=== PATIENT | male | born 1935 ===

== ENCOUNTER 2021-05-02 10:47 | Inpatient (IN) | payer OTHER ==
[2021-05-02] MEDS ORDERED: SODIUM CHLORIDE 1,987 ML IV ONE (12:12)
[2021-05-02] MEDS ORDERED: ACETAMINOPHEN 1000 MG/100 ML BAG IVPB ONE (12:14)
[2021-05-02] MEDS ORDERED: ACETAMINOPHEN INJECTION 100 ML IVPB ONE (12:23)
[2021-05-02] MEDS ORDERED: PIPERACILLIN/TAZOB 3.375 GM 3.375 GM in DEXTROSE 5%-WATER - 50 ML IVPB ONE (12:42)
[2021-05-02] MEDS ORDERED: VANCOMYCIN 1 GM in D5W (PRE-DOCKED) 1,000 MG/250 ML IVPB ONE (12:42)
[2021-05-02] MEDS ORDERED: PIPERACILLIN/TAZOB 3.375 GM 3.375 GM/50 ML BAG IVPB ONE (13:03)
[2021-05-02] MEDS ORDERED: VANCOMYCIN 1 GRAM (PRE-DOCKED) 1,000 MG/250 ML BAG IVPB ONE (13:03)
[2021-05-02 13:22] LABS: HEMATOCRIT 46.8 % (35.4-49); HEMOGLOBIN 14.6 GM/dL (11.7-16.9); MCH 27.8 pg (25.7-33.7); MCHC 31.1 g/dl (32.0-35.9); MEAN CELL VOLUME 89.2 fl (80-96); MEAN PLT VOLUME 9.1 fl (7.5-11.1); PLATELET COUNT 352 10^3/uL (134-434); RBC 5.25 M/mm3 (4.00-5.60); RDW 14.7 % (11.9-15.9); VENOUS BASE EXCESS 0.8 mmol/L (-2-2); VENOUS O2 SATURATION 47.8 % (70-80); VENOUS PCO2 34.6 mmHg (38-52); VENOUS PH 7.46 (7.310-7.410); WHITE BLOOD COUNT 20.3 K/mm3 (4.0-10.0)
[2021-05-02 13:30] LABS: INR 1.3 (0.83-1.09); PROTHROMBIN TIME (PATIENT) 14.6 SEC (9.7-13.0)
[2021-05-02 13:32] LABS: ACTIVATED PTT 31.1 SECONDS (25.2-36.5)
[2021-05-02 13:42] LABS: CALCIUM 8.4 mg/dL (8.5-10.1)
[2021-05-02 13:44] LABS: ALBUMIN 1.8 g/dl (3.4-5.0); BLOOD UREA NITROGEN 42.1 mg/dL (7-18)
[2021-05-02 13:46] LABS: CREATININE 1.4 mg/dL (0.55-1.3)
[2021-05-02 13:48] LABS: BILIRUBIN,TOTAL 0.5 mg/dL (0.2-1); TOT PROT 5.8 g/dl (6.4-8.2)
[2021-05-02 13:56] LABS: LACTIC ACID 2.8 mmol/L (0.4-2.0)
[2021-05-02 14:09] LABS: ERYTHROCYTE SEDIMENTATION RATE 42 mm/hr (0-20)
[2021-05-02 14:11] LABS: ANISOCYTOSIS 0; MACROCYTOSIS 0; PLATELET ESTIMATE NORMAL
[2021-05-02 14:53] LABS: EPI CELLS 6 /uL (0-25.1); HYALINE CASTS 18 /uL (0-3.1); URINE APPEARANCE CLOUDY; URINE BACTERIA 123 /uL (0-1359); URINE BILIRUBIN NEGATIVE (NEGATIVE); URINE COLOR YELLOW; URINE GLUCOSE (UA) NEGATIVE (NEGATIVE); URINE KETONE NEGATIVE (NEGATIVE); URINE LEUK ESTERASE 3+ (NEGATIVE); URINE NITRITE NEGATIVE (NEGATIVE); URINE PROTEIN TRACE (NEGATIVE); URINE RBC 584 /uL (0-23.9); URINE UROBILINOGEN 0.2 mg/dL (0.2-1.0); URINE WBC 860 /uL (0-25.8)
[2021-05-02 23:31] LABS: MAGNESIUM 2.2 mg/dL (1.8-2.4)
[2021-05-02] MEDS ORDERED: ACETAMINOPHEN 1000 MG/100 ML BAG IVPB PRN (23:46)
[2021-05-03 00:15] VITALS: BMI 19.5
[2021-05-03] MEDS ORDERED: PIPERACILLIN/TAZOBACTAM 3.375 GM VIAL IVPB ONE ×2 (02:24→09:16)
[2021-05-03] MEDS ORDERED: DEXTROSE 5%-WATER - 50 ML IVPB ONE ×2 (02:25→09:16)
[2021-05-03] MEDS: PIPERACILLIN/TAZOB 3.375 GM 3.375 GM in DEXTROSE 5%-WATER - 50 ML IVPB SCH ×4 (03:01→11:03)
[2021-05-03] MEDS ORDERED: DEXAMETHASONE SOD PHOSPHATE 4 MG/1 ML VIAL IVPUSH SCH (10:00)
[2021-05-03] MEDS ORDERED: MEROPENEM 1 GM VIAL (RESTRICTED TO ID) IVPB ONE ×2 (11:17→21:22)
[2021-05-03] MEDS ORDERED: DEXTROSE 5%-WATER 100 ML IVPB ONE ×2 (11:18→21:22)
[2021-05-03 11:20] LABS: HEMATOCRIT 47.6 % (35.4-49); HEMOGLOBIN 15.2 GM/dL (11.7-16.9); MCH 28.4 pg (25.7-33.7); MCHC 31.9 g/dl (32.0-35.9); MEAN CELL VOLUME 88.9 fl (80-96); MEAN PLT VOLUME 9.1 fl (7.5-11.1); PLATELET COUNT 269 10^3/uL (134-434); RBC 5.35 M/mm3 (4.00-5.60); RDW 14.8 % (11.9-15.9); WHITE BLOOD COUNT 16.8 K/mm3 (4.0-10.0)
[2021-05-03] MEDS: MEROPENEM 1 GM in DEXTROSE 5%-WATER 100 ML IVPB SCH ×2 (11:22→21:34)
[2021-05-03 11:33] LABS: ALBUMIN 1.9 g/dl (3.4-5.0); MAGNESIUM 2.2 mg/dL (1.8-2.4)
[2021-05-03 11:36] LABS: CREATININE 1.2 mg/dL (0.55-1.3)
[2021-05-03 11:38] LABS: BILIRUBIN,TOTAL 0.7 mg/dL (0.2-1); TOT PROT 5.6 g/dl (6.4-8.2)
[2021-05-03 12:09] LABS: ANISOCYTOSIS 0; HELMET CELLS 0; HOWELL-JOLLY BODIES 0; MACROCYTOSIS 0; OVALOCYTE 0; PLATELET ESTIMATE NORMAL; ROULEAU 0; SICKELED CELLS 0; TARGET CELLS 0; TEAR DROP CELLS 0; TOXIC GRANULATION 0
[2021-05-03] MEDS ORDERED: REMDESIVIR 200 MG in SODIUM CHLORIDE 250 ML IVPB ONE (13:00)
[2021-05-03] MEDS ORDERED: VANCOMYCIN 1,000 MG in DEXTROSE 5%-WATER - 250 ML IVPB SCH (14:00)
[2021-05-03] MEDS ORDERED: VANCOMYCIN 1 GRAM (PRE-DOCKED) 1,000 MG/250 ML BAG IVPB SCH (14:00)
[2021-05-03] MEDS ORDERED: SODIUM CHLORIDE 1,000 ML IV SCH (18:45)
[2021-05-03] MEDS ORDERED: DEXTROSE 5%-0.45% SALINE 1,000 ML IV SCH (18:45)
[2021-05-03] MEDS: LYTES/YERBA SANTA 60 ML SPRAY MM SCH (21:36)
[2021-05-04] MEDS: LYTES/YERBA SANTA 60 ML SPRAY MM SCH ×3 (07:11→22:20)
[2021-05-04 07:55] LABS: HEMATOCRIT 45.5 % (35.4-49); HEMOGLOBIN 14.5 GM/dL (11.7-16.9); MCH 28.2 pg (25.7-33.7); MEAN CELL VOLUME 88.3 fl (80-96); MEAN PLT VOLUME 8.9 fl (7.5-11.1); PLATELET COUNT 264 10^3/uL (134-434); RBC 5.15 M/mm3 (4.00-5.60); RDW 14.8 % (11.9-15.9); WHITE BLOOD COUNT 18.3 K/mm3 (4.0-10.0)
[2021-05-04 08:21] LABS: ALBUMIN 1.9 g/dl (3.4-5.0); BLOOD UREA NITROGEN 35.1 mg/dL (7-18); CALCIUM 8.3 mg/dL (8.5-10.1)
[2021-05-04 08:22] LABS: MAGNESIUM 2.3 mg/dL (1.8-2.4)
[2021-05-04 08:24] LABS: BILIRUBIN,TOTAL 0.3 mg/dL (0.2-1); TOT PROT 5.3 g/dl (6.4-8.2)
[2021-05-04 08:26] LABS: CREATININE 1.1 mg/dL (0.55-1.3)
[2021-05-04] MEDS ORDERED: DEXTROSE 5%-WATER - 1,000 ML IV SCH ×2 (08:30→12:00)
[2021-05-04 09:04] LABS: ANISOCYTOSIS 0; HELMET CELLS 0; HOWELL-JOLLY BODIES 0; MACROCYTOSIS 0; OVALOCYTE 0; PLATELET ESTIMATE NORMAL; ROULEAU 0; SICKELED CELLS 0; TARGET CELLS 0; TEAR DROP CELLS 0; TOXIC GRANULATION 0
[2021-05-04] MEDS ORDERED: MEROPENEM 1 GM VIAL (RESTRICTED TO ID) IVPB ONE ×3 (09:33→21:31)
[2021-05-04] MEDS ORDERED: DEXTROSE 5%-WATER 100 ML IVPB ONE ×3 (09:34→21:31)
[2021-05-04] MEDS ORDERED: MEROPENEM 1 GM in DEXTROSE 5%-WATER 100 ML IVPB SCH (10:00)
[2021-05-04] MEDS: DEXAMETHASONE SOD PHOSPHATE 4 MG/1 ML VIAL IVPUSH SCH (10:21)
[2021-05-04] MEDS: MEROPENEM 1 GM in DEXTROSE 5%-WATER 100 ML IVPB SCH ×3 (10:22→21:39)
[2021-05-04] MEDS ORDERED: PT OWN MED DRAWER 7, Y5N ONE ×2 (11:02→13:33)
[2021-05-04] MEDS ORDERED: TOCILIZUMAB (ACTEMRA) 200 MG/10 ML VIAL IVPB ONE (12:56)
[2021-05-04] MEDS ORDERED: REMDESIVIR 100 MG in SODIUM CHLORIDE 250 ML IVPB SCH (13:00)
[2021-05-04] MEDS: REMDESIVIR 100 MG in SODIUM CHLORIDE 250 ML IVPB SCH (13:46)
[2021-05-04] MEDS ORDERED: TOCILIZUMAB 400 MG, TOCILIZUMAB 100 MG in SODIUM CHLORIDE 75 ML IVPB ONE (14:00)
[2021-05-05] MEDS ORDERED: DEXTROSE 5%-WATER 100 ML IVPB ONE ×3 (02:24→17:28)
[2021-05-05] MEDS ORDERED: MEROPENEM 1 GM VIAL (RESTRICTED TO ID) IVPB ONE ×3 (02:24→17:28)
[2021-05-05] MEDS: MEROPENEM 1 GM in DEXTROSE 5%-WATER 100 ML IVPB SCH ×3 (02:45→17:38)
[2021-05-05] MEDS: LYTES/YERBA SANTA 60 ML SPRAY MM SCH ×3 (06:58→21:56)
[2021-05-05 07:36] LABS: HEMATOCRIT 44.3 % (35.4-49); MCHC 31.7 g/dl (32.0-35.9); MEAN CELL VOLUME 88.4 fl (80-96); MEAN PLT VOLUME 9.4 fl (7.5-11.1); PLATELET COUNT 266 10^3/uL (134-434); RBC 5.02 M/mm3 (4.00-5.60); RDW 15.1 % (11.9-15.9); WHITE BLOOD COUNT 15.7 K/mm3 (4.0-10.0)
[2021-05-05 08:19] LABS: BLOOD UREA NITROGEN 37.6 mg/dL (7-18); MAGNESIUM 2.2 mg/dL (1.8-2.4)
[2021-05-05 08:21] LABS: CREATININE 0.9 mg/dL (0.55-1.3)
[2021-05-05 08:23] LABS: BILIRUBIN,TOTAL 0.3 mg/dL (0.2-1); TOT PROT 5.1 g/dl (6.4-8.2)
[2021-05-05 08:38] LABS: ANISOCYTOSIS 1+; MACROCYTOSIS 0; PLATELET ESTIMATE NORMAL
[2021-05-05] MEDS: DEXAMETHASONE SOD PHOSPHATE 4 MG/1 ML VIAL IVPUSH SCH (10:15)
[2021-05-05 11:15] LABS: ALBUMIN 1.4 g/dl (3.4-5.0)
[2021-05-05] MEDS ORDERED: KCL 10 MEQ IVPB 10 MEQ/100 ML INFUS.BAG IVPB SCH (11:30)
[2021-05-05] MEDS: DEXTROSE 5%-WATER - 1,000 ML IV SCH (13:21)
[2021-05-05] MEDS ORDERED: PT OWN MED DRAWER 7, Y5N ONE (13:23)
[2021-05-05] MEDS: REMDESIVIR 100 MG in SODIUM CHLORIDE 250 ML IVPB SCH (13:24)
[2021-05-06] MEDS ORDERED: MEROPENEM 1 GM VIAL (RESTRICTED TO ID) IVPB ONE ×3 (02:56→17:22)
[2021-05-06] MEDS ORDERED: DEXTROSE 5%-WATER 100 ML IVPB ONE ×3 (02:56→17:22)
[2021-05-06] MEDS: MEROPENEM 1 GM in DEXTROSE 5%-WATER 100 ML IVPB SCH ×3 (03:00→17:36)
[2021-05-06] MEDS: LYTES/YERBA SANTA 60 ML SPRAY MM SCH ×3 (06:00→23:39)
[2021-05-06 08:22] LABS: HEMATOCRIT 45.7 % (35.4-49); HEMOGLOBIN 14.5 GM/dL (11.7-16.9); MCHC 31.7 g/dl (32.0-35.9); MEAN CELL VOLUME 88.4 fl (80-96); MEAN PLT VOLUME 9.6 fl (7.5-11.1); PLATELET COUNT 272 10^3/uL (134-434); RBC 5.16 M/mm3 (4.00-5.60); RDW 15.2 % (11.9-15.9); WHITE BLOOD COUNT 16.9 K/mm3 (4.0-10.0)
[2021-05-06 08:51] LABS: ALBUMIN 1.7 g/dl (3.4-5.0); BLOOD UREA NITROGEN 35.7 mg/dL (7-18); CALCIUM 7.7 mg/dL (8.5-10.1); MAGNESIUM 2.1 mg/dL (1.8-2.4)
[2021-05-06 08:54] LABS: BILIRUBIN,TOTAL 0.5 mg/dL (0.2-1); CREATININE 0.8 mg/dL (0.55-1.3); TOT PROT 4.8 g/dl (6.4-8.2)
[2021-05-06] MEDS: DEXAMETHASONE SOD PHOSPHATE 4 MG/1 ML VIAL IVPUSH SCH (09:46)
[2021-05-06] MEDS ORDERED: FLUCONAZOLE 100 MG/D5W 50 ML IVPB SCH (11:30)
[2021-05-06 11:41] LABS: ANISOCYTOSIS 1+; MACROCYTOSIS 0; OVALOCYTE 2+; PLATELET ESTIMATE NORMAL; TARGET CELLS 1+; TEAR DROP CELLS 1+; TOXIC GRANULATION 2+
[2021-05-06] MEDS: REMDESIVIR 100 MG in SODIUM CHLORIDE 250 ML IVPB SCH (12:31)
[2021-05-06] MEDS: DEXTROSE 5%-WATER - 1,000 ML IV SCH ×2 (12:39)
[2021-05-06] MEDS: MAG HYDROX/ALH/SMC/DPHA/LIDO 240 ML MOUTHWASH MM SCH ×3 (12:43→23:39)
[2021-05-07] MEDS ORDERED: DEXTROSE 5%-WATER 100 ML IVPB ONE ×3 (02:29→17:40)
[2021-05-07] MEDS ORDERED: MEROPENEM 1 GM VIAL (RESTRICTED TO ID) IVPB ONE ×3 (02:29→17:40)
[2021-05-07] MEDS: MEROPENEM 1 GM in DEXTROSE 5%-WATER 100 ML IVPB SCH ×3 (02:44→17:43)
[2021-05-07] MEDS: MAG HYDROX/ALH/SMC/DPHA/LIDO 240 ML MOUTHWASH MM SCH ×3 (06:57→17:53)
[2021-05-07] MEDS: LYTES/YERBA SANTA 60 ML SPRAY MM SCH ×3 (06:57→22:00)
[2021-05-07] MEDS: DEXAMETHASONE SOD PHOSPHATE 4 MG/1 ML VIAL IVPUSH SCH (10:56)
[2021-05-07] MEDS: FLUCONAZOLE 100 MG/NS 50 ML IVPB SCH (10:57)
[2021-05-07] MEDS ORDERED: PT OWN MED DRAWER 7, Y5N ONE (12:36)
[2021-05-07] MEDS: REMDESIVIR 100 MG in SODIUM CHLORIDE 250 ML IVPB SCH (13:33)
[2021-05-07] MEDS: DEXTROSE 5%-WATER - 1,000 ML IV SCH (16:58)
[2021-05-08] MEDS: MAG HYDROX/ALH/SMC/DPHA/LIDO 240 ML MOUTHWASH MM SCH ×4 (00:10→17:59)
[2021-05-08] MEDS: MEROPENEM 1 GM in DEXTROSE 5%-WATER 100 ML IVPB SCH ×3 (01:45→17:45)
[2021-05-08] MEDS ORDERED: MEROPENEM 1 GM VIAL (RESTRICTED TO ID) IVPB ONE ×3 (02:08→17:14)
[2021-05-08] MEDS ORDERED: DEXTROSE 5%-WATER 100 ML IVPB ONE ×3 (02:08→17:14)
[2021-05-08 07:09] LABS: HEMATOCRIT 45.5 % (35.4-49); HEMOGLOBIN 14.3 GM/dL (11.7-16.9); MCH 27.6 pg (25.7-33.7); MCHC 31.4 g/dl (32.0-35.9); MEAN CELL VOLUME 87.8 fl (80-96); MEAN PLT VOLUME 9.3 fl (7.5-11.1); PLATELET COUNT 234 10^3/uL (134-434); RBC 5.18 M/mm3 (4.00-5.60); WHITE BLOOD COUNT 25.7 K/mm3 (4.0-10.0)
[2021-05-08] MEDS: LYTES/YERBA SANTA 60 ML SPRAY MM SCH ×3 (07:24→22:14)
[2021-05-08 07:36] LABS: CREATININE 0.7 mg/dL (0.55-1.3)
[2021-05-08 07:37] LABS: ALBUMIN 1.8 g/dl (3.4-5.0); BILIRUBIN,TOTAL 0.8 mg/dL (0.2-1); BLOOD UREA NITROGEN 29.1 mg/dL (7-18); TOT PROT 4.5 g/dl (6.4-8.2)
[2021-05-08 07:38] LABS: CALCIUM 7.6 mg/dL (8.5-10.1); MAGNESIUM 2.1 mg/dL (1.8-2.4)
[2021-05-08] MEDS: FLUCONAZOLE 100 MG/NS 50 ML IVPB SCH (09:43)
[2021-05-08] MEDS: DEXAMETHASONE SOD PHOSPHATE 4 MG/1 ML VIAL IVPUSH SCH (09:46)
[2021-05-08] MEDS: DEXTROSE 5%-WATER - 1,000 ML IV SCH ×2 (11:50→17:58)
[2021-05-08 12:01] LABS: ANISOCYTOSIS 0; HELMET CELLS 0; HOWELL-JOLLY BODIES 0; MACROCYTOSIS 0; OVALOCYTE 0; PLATELET ESTIMATE NORMAL; ROULEAU 0; SICKELED CELLS 0; TARGET CELLS 0; TEAR DROP CELLS 0; TOXIC GRANULATION 0
[2021-05-09] MEDS: MAG HYDROX/ALH/SMC/DPHA/LIDO 240 ML MOUTHWASH MM SCH ×4 (00:05→21:45)
[2021-05-09] MEDS ORDERED: DEXTROSE 5%-WATER 100 ML IVPB ONE ×3 (02:34→16:39)
[2021-05-09] MEDS ORDERED: MEROPENEM 1 GM VIAL (RESTRICTED TO ID) IVPB ONE ×3 (02:34→16:39)
[2021-05-09] MEDS: MEROPENEM 1 GM in DEXTROSE 5%-WATER 100 ML IVPB SCH ×3 (02:50→17:26)
[2021-05-09] MEDS: LYTES/YERBA SANTA 60 ML SPRAY MM SCH ×3 (06:33→21:46)
[2021-05-09] MEDS: FLUCONAZOLE 100 MG/NS 50 ML IVPB SCH (11:31)
[2021-05-09] MEDS: DEXAMETHASONE SOD PHOSPHATE 4 MG/1 ML VIAL IVPUSH SCH (11:31)
[2021-05-09] MEDS ORDERED: PT OWN MED DRAWER 7, Y5N ONE (11:47)
[2021-05-09] MEDS: DEXTROSE 5%-WATER - 1,000 ML IV SCH (12:19)
[2021-05-09] MEDS: AMINO ACIDS 4.25%/D5W 1,000 ML IV SCH (16:21)
[2021-05-09 19:54] LABS: BASO % 0.2 % (0-2.0); HEMOGLOBIN 15.4 GM/dL (11.7-16.9); LYMPH % 2.5 % (8-40); MEAN CELL VOLUME 87.4 fl (80-96); MEAN PLT VOLUME 9.2 fl (7.5-11.1); MONO % 1.3 % (3.8-10.2); PLATELET COUNT 224 10^3/uL (134-434); RBC 5.49 M/mm3 (4.00-5.60); RDW 14.6 % (11.9-15.9); WHITE BLOOD COUNT 22.2 K/mm3 (4.0-10.0)
[2021-05-09 20:21] LABS: ALBUMIN 1.9 g/dl (3.4-5.0); BLOOD UREA NITROGEN 25.1 mg/dL (7-18); CALCIUM 7.6 mg/dL (8.5-10.1)
[2021-05-09 20:24] LABS: BILIRUBIN,TOTAL 0.8 mg/dL (0.2-1); CREATININE 0.6 mg/dL (0.55-1.3); TOT PROT 4.7 g/dl (6.4-8.2)
[2021-05-09 20:29] LABS: ANISOCYTOSIS 0; HELMET CELLS 0; HOWELL-JOLLY BODIES 0; MACROCYTOSIS 0; OVALOCYTE 0; PLATELET ESTIMATE NORMAL; ROULEAU 0; SICKELED CELLS 0; TARGET CELLS 0; TEAR DROP CELLS 0; TOXIC GRANULATION 0
[2021-05-10] MEDS: MAG HYDROX/ALH/SMC/DPHA/LIDO 240 ML MOUTHWASH MM SCH ×5 (00:04→23:37)
[2021-05-10] MEDS ORDERED: MEROPENEM 1 GM VIAL (RESTRICTED TO ID) IVPB ONE ×3 (01:49→18:01)
[2021-05-10] MEDS ORDERED: DEXTROSE 5%-WATER 100 ML IVPB ONE ×3 (01:50→18:01)
[2021-05-10] MEDS: MEROPENEM 1 GM in DEXTROSE 5%-WATER 100 ML IVPB SCH ×3 (02:05→18:04)
[2021-05-10] MEDS: AMINO ACIDS 4.25%/D5W 1,000 ML IV SCH ×3 (05:27→18:14)
[2021-05-10] MEDS: LYTES/YERBA SANTA 60 ML SPRAY MM SCH ×3 (05:28→21:55)
[2021-05-10] MEDS: FLUCONAZOLE 100 MG/NS 50 ML IVPB SCH (11:17)
[2021-05-10] MEDS: DEXAMETHASONE SOD PHOSPHATE 4 MG/1 ML VIAL IVPUSH SCH (11:17)
[2021-05-10 17:06] LABS: BASO % 0.2 % (0-2.0); EOS % 0.1 % (0-4.5); HEMATOCRIT 54.8 % (35.4-49); HEMOGLOBIN 17.8 GM/dL (11.7-16.9); LYMPH % 1.9 % (8-40); MCH 28.2 pg (25.7-33.7); MCHC 32.4 g/dl (32.0-35.9); MEAN CELL VOLUME 87.1 fl (80-96); MEAN PLT VOLUME 9.3 fl (7.5-11.1); MONO % 0.8 % (3.8-10.2); PLATELET COUNT 237 10^3/uL (134-434); RDW 14.7 % (11.9-15.9); WHITE BLOOD COUNT 29.8 K/mm3 (4.0-10.0)
[2021-05-10 17:07] LABS: CALCIUM 8.1 mg/dL (8.5-10.1)
[2021-05-10 17:08] LABS: BLOOD UREA NITROGEN 32.4 mg/dL (7-18)
[2021-05-10 17:10] LABS: CREATININE 0.9 mg/dL (0.55-1.3)
[2021-05-10 17:12] LABS: BILIRUBIN,TOTAL 1.1 mg/dL (0.2-1); TOT PROT 5.7 g/dl (6.4-8.2)
[2021-05-10 17:16] LABS: ALBUMIN 2.4 g/dl (3.4-5.0)
[2021-05-10] MEDS ORDERED: PT OWN MED DRAWER 7, Y5N ONE ×2 (18:01→20:53)
[2021-05-10 20:39] LABS: ANISOCYTOSIS 0; HELMET CELLS 0; HOWELL-JOLLY BODIES 0; MACROCYTOSIS 0; OVALOCYTE 0; PLATELET ESTIMATE NORMAL; ROULEAU 0; SICKELED CELLS 0; TARGET CELLS 0; TEAR DROP CELLS 0; TOXIC GRANULATION 0
[2021-05-11] MEDS ORDERED: DEXTROSE 5%-WATER 100 ML IVPB ONE ×3 (00:22→17:53)
[2021-05-11] MEDS ORDERED: MEROPENEM 1 GM VIAL (RESTRICTED TO ID) IVPB ONE ×3 (00:22→17:53)
[2021-05-11] MEDS: MEROPENEM 1 GM in DEXTROSE 5%-WATER 100 ML IVPB SCH ×3 (01:34→18:20)
[2021-05-11] MEDS: LYTES/YERBA SANTA 60 ML SPRAY MM SCH ×3 (06:13→21:53)
[2021-05-11] MEDS: MAG HYDROX/ALH/SMC/DPHA/LIDO 240 ML MOUTHWASH MM SCH ×3 (06:13→18:20)
[2021-05-11] MEDS: AMINO ACIDS 4.25%/D5W 1,000 ML IV SCH ×2 (09:35→21:52)
[2021-05-11] MEDS: DEXAMETHASONE SOD PHOSPHATE 4 MG/1 ML VIAL IVPUSH SCH (09:38)
[2021-05-11] MEDS: FLUCONAZOLE 100 MG/NS 50 ML IVPB SCH (11:30)
[2021-05-12] MEDS ORDERED: MEROPENEM 1 GM VIAL (RESTRICTED TO ID) IVPB ONE ×3 (00:20→17:54)
[2021-05-12] MEDS ORDERED: DEXTROSE 5%-WATER 100 ML IVPB ONE ×3 (00:21→17:54)
[2021-05-12] MEDS: MAG HYDROX/ALH/SMC/DPHA/LIDO 240 ML MOUTHWASH MM SCH ×4 (00:25→17:57)
[2021-05-12] MEDS: MEROPENEM 1 GM in DEXTROSE 5%-WATER 100 ML IVPB SCH ×3 (01:11→17:56)
[2021-05-12] MEDS: LYTES/YERBA SANTA 60 ML SPRAY MM SCH ×3 (05:29→21:04)
[2021-05-12 08:49] LABS: HEMATOCRIT 52.1 % (35.4-49); HEMOGLOBIN 16.6 GM/dL (11.7-16.9); MCH 28.1 pg (25.7-33.7); MCHC 31.9 g/dl (32.0-35.9); MEAN CELL VOLUME 87.9 fl (80-96); MEAN PLT VOLUME 9.1 fl (7.5-11.1); PLATELET COUNT 157 10^3/uL (134-434); RBC 5.93 M/mm3 (4.00-5.60); RDW 14.8 % (11.9-15.9); WHITE BLOOD COUNT 26.9 K/mm3 (4.0-10.0)
[2021-05-12] MEDS: AMINO ACIDS 4.25%/D5W 1,000 ML IV SCH ×4 (08:58→14:37)
[2021-05-12 09:37] LABS: ALBUMIN 2.2 g/dl (3.4-5.0); BLOOD UREA NITROGEN 29.6 mg/dL (7-18); CALCIUM 7.8 mg/dL (8.5-10.1); CREATININE 0.6 mg/dL (0.55-1.3); MAGNESIUM 2.3 mg/dL (1.8-2.4); TOT PROT 5.2 g/dl (6.4-8.2)
[2021-05-12] MEDS: DEXAMETHASONE SOD PHOSPHATE 4 MG/1 ML VIAL IVPUSH SCH (10:37)
[2021-05-12] MEDS: FLUCONAZOLE 100 MG/NS 50 ML IVPB SCH (11:17)
[2021-05-12 11:31] LABS: OVALOCYTE 1+; PLATELET ESTIMATE ADEQUATE
[2021-05-13] MEDS: MAG HYDROX/ALH/SMC/DPHA/LIDO 240 ML MOUTHWASH MM SCH ×4 (00:26→17:25)
[2021-05-13] MEDS ORDERED: DEXTROSE 5%-WATER 100 ML IVPB ONE ×3 (01:46→17:17)
[2021-05-13] MEDS ORDERED: MEROPENEM 1 GM VIAL (RESTRICTED TO ID) IVPB ONE ×3 (01:46→17:17)
[2021-05-13] MEDS: MEROPENEM 1 GM in DEXTROSE 5%-WATER 100 ML IVPB SCH ×3 (01:49→17:25)
[2021-05-13] MEDS: MULTIVIT INJ. ADULT COMBO WITH VIT K 1 COMBO 10 ML VIAL IV SCH ×2 (02:08→22:55)
[2021-05-13] MEDS: AMINO ACIDS 4.25%/D5W 1,000 ML IV SCH ×3 (02:08→22:55)
[2021-05-13] MEDS: LYTES/YERBA SANTA 60 ML SPRAY MM SCH ×3 (05:54→22:55)
[2021-05-13] MEDS: DEXAMETHASONE SOD PHOSPHATE 4 MG/1 ML VIAL IVPUSH SCH (10:15)
[2021-05-13] MEDS: FLUCONAZOLE 100 MG/NS 50 ML IVPB SCH (10:15)
[2021-05-13 11:27] LABS: HEMATOCRIT 48.1 % (35.4-49); HEMOGLOBIN 15.6 GM/dL (11.7-16.9); MCH 28.3 pg (25.7-33.7); MCHC 32.4 g/dl (32.0-35.9); MEAN CELL VOLUME 87.4 fl (80-96); MEAN PLT VOLUME 9.5 fl (7.5-11.1); PLATELET COUNT 149 10^3/uL (134-434); WHITE BLOOD COUNT 29.2 K/mm3 (4.0-10.0)
[2021-05-13 11:28] LABS: ALBUMIN 2.2 g/dl (3.4-5.0); BLOOD UREA NITROGEN 36.4 mg/dL (7-18); MAGNESIUM 2.3 mg/dL (1.8-2.4)
[2021-05-13 11:31] LABS: CREATININE 0.5 mg/dL (0.55-1.3)
[2021-05-13 11:32] LABS: BILIRUBIN,TOTAL 1.1 mg/dL (0.2-1); TOT PROT 4.9 g/dl (6.4-8.2)
[2021-05-13 12:26] LABS: ANISOCYTOSIS 1+; MACROCYTOSIS 0; OVALOCYTE 1+; PLATELET ESTIMATE DECREASED; TEAR DROP CELLS 1+
[2021-05-13 20:48] LABS: HIV INTERPRETATION NEGATIVE (NEGATIVE)
[2021-05-14] MEDS: AMINO ACIDS 4.25%/D5W 1,000 ML IV SCH ×3 (00:54→17:30)
[2021-05-14] MEDS: MAG HYDROX/ALH/SMC/DPHA/LIDO 240 ML MOUTHWASH MM SCH ×4 (00:55→17:22)
[2021-05-14] MEDS ORDERED: MEROPENEM 1 GM VIAL (RESTRICTED TO ID) IVPB ONE ×3 (01:26→17:26)
[2021-05-14] MEDS ORDERED: DEXTROSE 5%-WATER 100 ML IVPB ONE ×3 (01:27→17:26)
[2021-05-14] MEDS: MEROPENEM 1 GM in DEXTROSE 5%-WATER 100 ML IVPB SCH ×3 (02:25→17:32)
[2021-05-14] MEDS: LYTES/YERBA SANTA 60 ML SPRAY MM SCH ×3 (05:58→22:44)
[2021-05-14] MEDS: FLUCONAZOLE 100 MG/NS 50 ML IVPB SCH (10:10)
[2021-05-14] MEDS: DEXAMETHASONE SOD PHOSPHATE 4 MG/1 ML VIAL IVPUSH SCH (10:49)
[2021-05-14 13:13] LABS: HEMATOCRIT 42.9 % (35.4-49); HEMOGLOBIN 13.4 GM/dL (11.7-16.9); MCH 27.7 pg (25.7-33.7); MCHC 31.2 g/dl (32.0-35.9); MEAN CELL VOLUME 88.8 fl (80-96); MEAN PLT VOLUME 9.7 fl (7.5-11.1); PLATELET COUNT 139 10^3/uL (134-434); RBC 4.84 M/mm3 (4.00-5.60); RDW 14.7 % (11.9-15.9)
[2021-05-14 13:18] LABS: WHITE BLOOD COUNT 37.9 K/mm3 (4.0-10.0)
[2021-05-14 13:48] LABS: ALBUMIN 2.1 g/dl (3.4-5.0); BLOOD UREA NITROGEN 43.4 mg/dL (7-18); MAGNESIUM 2.3 mg/dL (1.8-2.4)
[2021-05-14 13:51] LABS: CREATININE 0.5 mg/dL (0.55-1.3)
[2021-05-14 13:52] LABS: TOT PROT 4.6 g/dl (6.4-8.2)
[2021-05-14 14:12] LABS: ANISOCYTOSIS 0; HELMET CELLS 0; HOWELL-JOLLY BODIES 0; MACROCYTOSIS 0; OVALOCYTE 0; PLATELET ESTIMATE DECREASED; ROULEAU 0; SICKELED CELLS 0; TARGET CELLS 0; TEAR DROP CELLS 0; TOXIC GRANULATION 0
[2021-05-14] MEDS: MULTIVIT INJ. ADULT COMBO WITH VIT K 1 COMBO 10 ML VIAL IV SCH (22:44)
[2021-05-15] MEDS ORDERED: MEROPENEM 1 GM VIAL (RESTRICTED TO ID) IVPB ONE ×3 (01:06→17:23)
[2021-05-15] MEDS ORDERED: DEXTROSE 5%-WATER 100 ML IVPB ONE ×3 (01:06→17:23)
[2021-05-15] MEDS: AMINO ACIDS 4.25%/D5W 1,000 ML IV SCH ×3 (01:29→21:47)
[2021-05-15] MEDS: MEROPENEM 1 GM in DEXTROSE 5%-WATER 100 ML IVPB SCH ×3 (01:29→17:35)
[2021-05-15] MEDS: MAG HYDROX/ALH/SMC/DPHA/LIDO 240 ML MOUTHWASH MM SCH ×4 (01:29→17:35)
[2021-05-15] MEDS: LYTES/YERBA SANTA 60 ML SPRAY MM SCH ×3 (05:38→21:48)
[2021-05-15] MEDS: MULTIVIT INJ. ADULT COMBO WITH VIT K 1 COMBO 10 ML VIAL IV SCH ×2 (05:38→22:23)
[2021-05-15] MEDS ORDERED: SODIUM CHLORIDE 100 ML IV STA (06:17)
[2021-05-15] MEDS: DEXAMETHASONE SOD PHOSPHATE 4 MG/1 ML VIAL IVPUSH SCH (09:23)
[2021-05-15] MEDS: FLUCONAZOLE 100 MG/NS 50 ML IVPB SCH (09:30)
[2021-05-16] MEDS: MAG HYDROX/ALH/SMC/DPHA/LIDO 240 ML MOUTHWASH MM SCH ×4 (00:23→17:20)
[2021-05-16] MEDS ORDERED: MEROPENEM 1 GM VIAL (RESTRICTED TO ID) IVPB ONE ×3 (02:17→17:16)
[2021-05-16] MEDS ORDERED: DEXTROSE 5%-WATER 100 ML IVPB ONE ×3 (02:18→17:16)
[2021-05-16] MEDS: MEROPENEM 1 GM in DEXTROSE 5%-WATER 100 ML IVPB SCH ×3 (02:23→17:20)
[2021-05-16] MEDS: AMINO ACIDS 4.25%/D5W 1,000 ML IV SCH ×2 (02:23→13:46)
[2021-05-16] MEDS: LYTES/YERBA SANTA 60 ML SPRAY MM SCH ×3 (06:02→22:14)
[2021-05-16 10:07] LABS: CHLORIDE 104 mmol/L (98-107); SODIUM 138 mmol/L (136-145)
[2021-05-16] MEDS: DEXAMETHASONE SOD PHOSPHATE 4 MG/1 ML VIAL IVPUSH SCH (10:07)
[2021-05-16 10:11] LABS: CALCIUM 8.1 mg/dL (8.5-10.1)
[2021-05-16 10:12] LABS: ALBUMIN 2.1 g/dl (3.4-5.0); ANION GAP 4 MMOL/L (8-16); BLOOD UREA NITROGEN 60.2 mg/dL (7-18); CO2 30 mmol/L (21-32); GLUCOSE,RANDOM 114 mg/dL (74-106)
[2021-05-16 10:15] LABS: CREATININE 0.4 mg/dL (0.55-1.3); SGOT/AST 28 U/L (15-37); SGPT/ALT 32 U/L (13-61)
[2021-05-16 10:17] LABS: BILIRUBIN,TOTAL 0.8 mg/dL (0.2-1); TOT PROT 4.4 g/dl (6.4-8.2)
[2021-05-16 10:18] LABS: ALK PHOS 112 U/L (45-117)
[2021-05-16] MEDS: FLUCONAZOLE 100 MG/NS 50 ML IVPB SCH (10:45)
[2021-05-17] MEDS: MAG HYDROX/ALH/SMC/DPHA/LIDO 240 ML MOUTHWASH MM SCH ×3 (00:02→11:19)
[2021-05-17] MEDS: MULTIVIT INJ. ADULT COMBO WITH VIT K 1 COMBO 10 ML VIAL IV SCH (02:02)
[2021-05-17] MEDS: AMINO ACIDS 4.25%/D5W 1,000 ML IV SCH ×2 (02:02→14:32)
[2021-05-17] MEDS: LYTES/YERBA SANTA 60 ML SPRAY MM SCH ×2 (05:24→14:33)
[2021-05-17] MEDS: FLUCONAZOLE 100 MG/NS 50 ML IVPB SCH (11:18)
[2021-05-17] MEDS: DEXAMETHASONE SOD PHOSPHATE 4 MG/1 ML VIAL IVPUSH SCH (11:18)
[2021-05-17 13:42] LABS: CHLORIDE 104 mmol/L (98-107); SODIUM 139 mmol/L (136-145)
[2021-05-17 13:47] LABS: CALCIUM 8.2 mg/dL (8.5-10.1)
[2021-05-17 13:48] LABS: ALBUMIN 2.1 g/dl (3.4-5.0); ANION GAP 7 MMOL/L (8-16); CO2 28 mmol/L (21-32); GLUCOSE,RANDOM 112 mg/dL (74-106); MAGNESIUM 2.3 mg/dL (1.8-2.4)
[2021-05-17 13:51] LABS: CREATININE 0.4 mg/dL (0.55-1.3); SGOT/AST 37 U/L (15-37); SGPT/ALT 31 U/L (13-61)
[2021-05-17 13:53] LABS: BILIRUBIN,TOTAL 0.9 mg/dL (0.2-1); TOT PROT 4.4 g/dl (6.4-8.2)
[2021-05-17 13:54] LABS: ALK PHOS 117 U/L (45-117)
[2021-05-17 17:01] VITALS: BP 108/64; TEMP 98
[2021-05-17] MEDS ORDERED: MORPHINE SULFATE/0.9% NACL/PF 100 MG/100 ML BAG IVPB SCH (18:15)
[2021-05-17 23:39] VITALS: PULSE 108
== END 2021-05-18 02:56 | disposition expired | DRG 871 ==
LOC: JER 10:47 → JERBED 18:28 → J5S 22:01 → J4W 05-04 01:59 → J8W 05-13 23:45
PROVIDERS: ADMIT Internal Medicine; ATTEND Nurse Practitioner Family
PROC: XW033E5 Introduction of Remdesivir Anti-infective into Peripheral Vein, Percutaneous Approach, New Technology Group 5 (ICD-10-PCS; principal; 2021-05-03)
PROC: XW033H5 Introduction of Tocilizumab into Peripheral Vein, Percutaneous Approach, New Technology Group 5 (ICD-10-PCS; 2021-05-03)
DX: A41.89 Other specified sepsis (principal); G93.41 Metabolic encephalopathy; J96.01 Acute respiratory failure with hypoxia; U07.1 COVID-19; J12.82 Pneumonia due to coronavirus disease 2019; E43 Unspecified severe protein-calorie malnutrition; Z68.1 Body mass index [BMI] 19.9 or less, adult; E87.0 Hyperosmolality and hypernatremia; B37.0 Candidal stomatitis; N17.9 Acute kidney failure, unspecified; K92.2 Gastrointestinal hemorrhage, unspecified; N13.6 Pyonephrosis; R64 Cachexia; L03.90 Cellulitis, unspecified; K13.79 Other lesions of oral mucosa; R65.20 Severe sepsis without septic shock; N40.0 Benign prostatic hyperplasia without lower urinary tract symptoms; F03.90 Unspecified dementia, unspecified severity, without behavioral disturbance, psychotic disturbance, mood disturbance, and anxiety; D72.829 Elevated white blood cell count, unspecified; R19.5 Other fecal abnormalities; R62.7 Adult failure to thrive; Z71.89 Other specified counseling; Z78.9 Other specified health status
CPT/HCPCS: 36415; 70450-TC; 71045-TC-FY; 71250-TC; 74177-TC; 80053; 81003; 82272; 82728; 82803; 82962; 83605; 83615; 83735; 84478; 84484; 85025; 85379; 85610; 85651; 85730; 86140; 86803; 87040; 87086; 87350; 87389; 87804; 87899; 93005; 93010; 97116-GP; 97162-GP; 99285-25; C9399; C9803; J0131; J3262; Q9967; U0003; U0005